=== PATIENT | male | born 1955 | race African-American/Black ===

== ENCOUNTER 2016-07-03 13:31 | Emergency (ER) | payer MEDICAID ==
--- NOTE | 2016-07-03 13:50 | EDPRACDOC ---
- General Information Stated Complaint: BACK PAIN Time Seen by Provider: 07/03/16 13:43 Home Medications: Home Medications Meloxicam [Mobic] 15 mg PO DAILY 09/08/14 Cephalexin Monohydrate [Keflex] 500 mg PO Q6H #28 cap 12/18/14 Hydrocodone Bit/Acetaminophen [[place] 5-325 Tablet] 1 each PO Q4H #10 tab Azithromycin [Zithromax] 250 mg PO DAILY #4 tab 03/17/16 Hydrocodone/Acetaminophen [Lortab 5-325 mg Tablet] 1 each PO Q4H PRN #15 tablet 03/17/16 Cyclobenzaprine HCl [Flexeril] 10 mg PO TID #21 tab 07/03/16 Meloxicam [Mobic] 7.5 mg PO BID #20 tab 07/03/16 Allergies/Adverse Reactions: Allergies Allergy/AdvReac Type Severity Reaction Status Date / Time No Known Allergies Allergy Verified 03/17/16 05:01 ED Past Medical History - Patient Medical History Neurological History: Reports: Seizures Respiratory History: Reports: Pneumonia (current) GI/ History: Reports: Urinary Tract Infection (current) Musculoskeletal History: Reports: Arthritis Psychological History: Denies: Depression Systemic History: Denies: Cancer Surgical History: 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 Denies: Cancer, Cardiac Disorders - Social Medical History Smoking Status: Light tobacco smoker (less than 5/day) - Physical Exam Last recorded Vital Signs: Oxygen Pulse Oxygen Saturation O2 Device Oxygen Flow Rate Fraction of Inspired Oxygen ( FIO2) Decision Time to Discharge: 13:49 - Departure Disposition: Home Condition: Good Final Diagnosis: Back strain Qualifiers: Encounter type: initial encounter Qualified Code(s): S39.012A - Strain of muscle, fascia and tendon of lower back, initial encounter Instructions: Back Pain (ED), Core Strengthening Exercises (GEN), Thoracic ( Lumbar) Strain Education/Counseling Given To: Patient Education/Counseling Given Regarding: Diagnosis, Treatment, Follow Up Referrals: None,No Provider [Primary Care Provider] - One Week Prescriptions: New Cyclobenzaprine HCl [Flexeril] 10 mg PO TID #21 tab Meloxicam [Mobic] 7.5 mg PO BID #20 tab No Action Meloxicam [Mobic] 15 mg PO DAILY Cephalexin Monohydrate [Keflex] 500 mg PO Q6H #28 cap Hydrocodone Bit/Acetaminophen [[place] 5-325 Tablet] 1 each PO Q4H #10 tab Azithromycin [Zithromax] 250 mg PO DAILY #4 tab Hydrocodone/Acetaminophen [Lortab 5-325 mg Tablet] 1 each PO Q4H PRN #15 tablet PRN Reason: Pain Additional Instructions: HEATING PADS FOR ADDITIONAL RELIEF. IF SYMPTOMS PERSIST, FOLLOW UP WITH PCP.
[2016-07-03 13:57] VITALS: BP 163/80; PULSE 93; TEMP 96.5; BMI 29.2
== END 2016-07-03 13:57 | disposition home or self-care (01) ==
LOC: EDMC 13:31
DX: S39.012A Strain of muscle, fascia and tendon of lower back, initial encounter (principal); X58.XXXA Exposure to other specified factors, initial encounter; F17.210 Nicotine dependence, cigarettes, uncomplicated
CPT/HCPCS: 99282